=== PATIENT | female | born 1935 | race Caucasian/White ===

== ENCOUNTER 2019-06-10 13:46 | Emergency (ER) | payer BC ==
--- NOTE | 2019-06-10 14:03 | ER Document Report ---
ED Medical Screen (RME) - General Chief Complaint: Abdominal Pain Stated Complaint: ABDOMINAL PAIN,DIARRHEA Time Seen by Provider: 06/10/19 13:58 Primary Care Provider: THOMAS HUSTON FNP [Primary Care Provider] - Follow up as needed TRAVEL OUTSIDE OF THE [place] IN LAST 30 DAYS: No - HPI Notes: 06/10/19 14:02 Patient is an 83-year-old female with a history of IBS and factor V Leiden (on Coumadin) who presents complaining of having abdominal cramping and loose stool/diarrhea for the past 6 days. Patient states is been pretty constant. She had trouble making to the bathroom today when she felt the urge to go. Patient states that most of her symptoms occur after she eats. No fever, chest pain, shortness of breath, vomiting. No blood in her stool. I have treated and performed a rapid initial assessment of this patient. A comprehensive ED assessment and evaluation of the patient, analysis of test results and completion of medical decision making process will be conducted by additional ED providers. PHYSICAL EXAMINATION: GENERAL: Well-appearing, well-nourished and in no acute distress. A&Ox4. Answers questions appropriately. Abdomen: Limited exam in triage, grossly nontender. - Related Data Allergies/Adverse Reactions: meperidine HCl [From Demerol] Allergy (Mild, Verified 06/10/19 13:53) propoxyphene HCl [From Darvon] Allergy (Mild, Verified 06/10/19 13:53) codeine [Codeine] Allergy (Verified 06/10/19 13:53) VOMITING morphine [Morphine] Allergy (Verified 06/10/19 13:53) Anaphylaxis Penicillins Allergy (Verified 06/10/19 13:53) RASH Quinazolinones Allergy (Verified 06/10/19 13:54) Sulfa (Sulfonamide Antibiotics) Allergy (Verified 06/10/19 13:53) Home Medications: coumadin, (facter V-liden) Past Medical History - Social History Chew tobacco use (# tins/day): No Frequency of alcohol use: None Drug Abuse: None - Past Medical History Cardiac Medical History: Reports: Hx Hypertension - "WHITE COAT SYNDROM", Hx Pulmonary Embolism Denies: Hx Heart Attack Pulmonary Medical History: Denies: Hx Asthma Neurological Medical History: Denies: Hx Cerebrovascular Accident, Hx Seizures GI Medical History: Reports: Hx Diverticulitis, Hx Irritable Bowel. Denies: Hx Hepatitis, Hx Hiatal Hernia, Hx Ulcer Infectious Medical History: Denies: Hx C-Diff, Hx Hepatitis Past Surgical History: Reports: Hx Cholecystectomy, Hx Hysterectomy. Denies: Hx Mastectomy, Hx Open Heart Surgery, Hx Pacemaker - Immunizations Hx Diphtheria, Pertussis, Tetanus Vaccination: No Doctor's Discharge - Discharge Referrals: THOMAS HUSTON FNP [Primary Care Provider] - Follow up as needed
[2019-06-10] MEDS ORDERED: NORMAL SALINE 1000 ML 1,000 ML IV ONE (14:21)
--- NOTE | 2019-06-10 14:22 | ER Document Report ---
ED GI/ - General Chief Complaint: Abdominal Pain Stated Complaint: ABDOMINAL PAIN,DIARRHEA Time Seen by Provider: 06/10/19 13:58 Primary Care Provider: THOMAS HUSTON FNP [Primary Care Provider] - Follow up in 3-5 days TRAVEL OUTSIDE OF THE [place] IN LAST 30 DAYS: No - HPI Notes: 06/10/19 14:22 83-year-old female with history of IBS and factor V Leiden on Coumadin to the em ergency department with with complaints of 6 days of diarrhea. She states that this is different from her normal IBS diarrhea that she gets. She states that typically she can target her diarrhea with her IBS when she is going out to the doctor or an appointment and is starting to get nervous. She states however, that this diarrhea is happening every time she eats and she is having significant bowel urgency. She states that she is having diarrhea is explosive and she is having a hard time making it to the bathroom. She states is very smelly. She states that she has not been on any antibiotics recently. She states that she has not recently been traveling or recently had any change in her diet. Her does state that they did use a pancake mix that was about 40 years past its expiration but he also ate the pancakes and did not get particularly ill. She denies any fevers or chills. She denies any nausea or vomiting. She states that her last colonoscopy was about 3 years ago and she had 2 polyps removed. She is supposed to see her GI specialist again for another scope in 2 years. She denies any bloody diarrhea. She states that she got her Coumadin level checked earlier in the week and it was 2.5. She is never had C. difficile colitis. She denies any sick contacts. She has had a cholecystectomy. - Related Data Allergies/Adverse Reactions: meperidine HCl [From Demerol] Allergy (Mild, Verified 06/10/19 13:53) propoxyphene HCl [From Darvon] Allergy (Mild, Verified 06/10/19 13:53) codeine [Codeine] Allergy (Verified 06/10/19 13:53) VOMITING morphine [Morphine] Allergy (Verified 06/10/19 13:53) Anaphylaxis Penicillins Allergy (Verified 06/10/19 13:53) RASH Quinazolinones Allergy (Verified 06/10/19 13:54) Sulfa (Sulfonamide Antibiotics) Allergy (Verified 06/10/19 13:53) Home Medications: coumadin, (vanessa Hastings) Past Medical History - General Information source: Patient, Relative - - Social History Smoking Status: Never Smoker Chew tobacco use (# tins/day): No Frequency of alcohol use: None Drug Abuse: None Family History: Reviewed & Not Pertinent Patient has suicidal ideation: No Patient has homicidal ideation: No - Past Medical History Cardiac Medical History: Reports: Hx Hypertension - "WHITE COAT SYNDROM", Hx Pulmonary Embolism Denies: Hx Heart Attack Pulmonary Medical History: Denies: Hx Asthma Neurological Medical History: Denies: Hx Cerebrovascular Accident, Hx Seizures GI Medical History: Reports: Hx Diverticulitis, Hx Irritable Bowel. Denies: Hx Hepatitis, Hx Hiatal Hernia, Hx Ulcer Infectious Medical History: Denies: Hx C-Diff, Hx Hepatitis Past Surgical History: Reports: Hx Cholecystectomy, Hx Hysterectomy. Denies: Hx Mastectomy, Hx Open Heart Surgery, Hx Pacemaker - Immunizations Hx Diphtheria, Pertussis, Tetanus Vaccination: No Review of Systems - Review of Systems Constitutional: denies: Chills, Fever EENT: No symptoms reported Cardiovascular: denies: Chest pain, Palpitations, Heart racing, Orthopnea, Dyspnea, Syncope, Dizziness, Lightheaded Respiratory: denies: Cough, Short of breath Gastrointestinal: Abdominal pain, Diarrhea. denies: Nausea, Vomiting, Constipation, Blood streaked bowels, Black stools, Rectal bleeding Genitourinary: No symptoms reported Musculoskeletal: No symptoms reported Skin: No symptoms reported Hematologic/Lymphatic: No symptoms reported Neurological/Psychological: No symptoms reported -: Yes All other systems reviewed and negative Physical Exam - Vital signs Vitals: Temp Pulse Resp BP Pulse Ox 97.4 F 101 H 16 170/76 H 97 06/10/19 14:07 06/10/19 14:07 06/10/19 14:07 06/10/19 14:07 06/10/19 14:07 Interpretation: Hypertensive - General General appearance: Appears well, Alert In distress: None - HEENT Head: Normocephalic, Atraumatic Eyes: Normal Pupils: PERRL - Respiratory Respiratory status: No respiratory distress Chest status: Nontender Breath sounds: Normal Chest palpation: Normal - Cardiovascular Rhythm: Regular Heart sounds: Normal auscultation Murmur: No - Abdominal Inspection: Obese Distension: No distension Bowel sounds: Normal Tenderness: Tender - there is mild TTP over the epigastrium with no rebound or guarding, negative McBurney's point Organomegaly: No organomegaly - Back Back: Normal, Nontender. No: CVA tenderness - Extremities General upper extremity: Normal inspection, Nontender, Normal color, Normal ROM, Normal temperature General lower extremity: Normal inspection, Nontender, Normal color, Normal ROM, Normal temperature, Normal weight bearing. No: Toyin's sign - Neurological Neuro grossly intact: Yes Cognition: Normal Orientation: AAOx4 Gina Coma Scale Eye Opening: Spontaneous [place] Coma Scale Verbal: Oriented [place] Coma Scale Motor: Obeys Commands Gina Coma Scale Total: 15 Speech: Normal Cranial nerves: Normal. No: Facial palsy, Forehead sparing, Gaze palsy, Sensory deficit Cerebellar coordination: Normal Motor strength normal: LUE, RUE, LLE, RLE Additional motor exam normals: Equal bee breeder. No: Weakness Sensory: Normal - Psychological Associated symptoms: Normal affect, Normal mood - Skin Skin Temperature: Warm Skin Moisture: Dry Skin Color: Normal Course - Re-evaluation Re-evalutation: discussed patient with Dr. Rogers. He would like me to get a KUB to check for a stool plug on patient. KUB does not illustrate any impaction of fecal matter, but film is not ideal. Discussed further with Dr. Rogers, we will not give antidiarrheals and I will get patient to provide stool sample from home. WIll encourage probiotics and GI follow up. Dr. Rogers agrees. - Vital Signs Vital signs: Temp Pulse Resp BP Pulse Ox 97.7 F 89 18 172/73 H 100 06/10/19 18:16 06/10/19 18:16 06/10/19 18:16 06/10/19 18:16 06/10/19 18:16 - Laboratory Result Diagrams: 06/10/19 14:37 06/10/19 14:37 Laboratory results interpreted by me: 06/10/19 06/10/19 06/10/19 14:37 14:37 14:37 RDW 15.5 H Plt Count 123 L Lymph % (Auto) 11.7 L Seg Neutrophils % 80.5 H PT 26.5 H Potassium 3.3 L Est GFR (MDRD) Non-Af 52 L Glucose 112 H Urine Blood Leukocyte Esterase Rfl 06/10/19 17:24 RDW Plt Count Lymph % (Auto) Seg Neutrophils % PT Potassium Est GFR (MDRD) Non-Af Glucose Urine Blood SMALL H Leukocyte Esterase Rfl TRACE H - Diagnostic Test Radiology reviewed: Image reviewed, Reports reviewed Discharge - Discharge Clinical Impression: Abdominal cramping Diarrhea Qualifiers: Diarrhea type: unspecified type Qualified Code(s): R19.7 - Diarrhea, unspecified Condition: Stable Disposition: HOME, SELF-CARE Instructions: Diarrhea, Nonspecific ([facility]) Additional Instructions: Push fluids. Do not take any antidiarrheals. MAY USE A PROBIOTIC. Return with your stool samples to the lab. Do not forget to bring your lab order for the stool sample. Return if worsening symptoms such as weakness, passing out, blood in stool, fevers, intractable pain or intractable nausea and vomiting. Follow- up with GI specialist in [place]. [facility] [address], [place] [address] Forms: Follow-Up Laboratory Testing Referrals: THOMAS HUSTON FNP [Primary Care Provider] - Follow up in 3-5 days
[2019-06-10 14:51] LABS: ABSOLUTE EOSINOPHILS # (AUTO) 0.1 10^3/uL (0.0-0.6); ABSOLUTE LYMPHOCYTES (AUTO) 0.5 10^3/uL (0.5-4.7); ABSOLUTE MONOCYTES (AUTO) 0.2 10^3/uL (0.1-1.4); ABSOLUTE NEUT (AUTO) 3.3 10^3/uL (1.7-8.2); BASOPHILS % (AUTO) 1.1 % (0-2); EOSINOPHILS % (AUTO) 2.1 % (0-6); HEMOGLOBIN 12.7 g/dL (12.0-15.5); LYMPHOCYTES % (AUTO) 11.7 % (13-45); MEAN CORPUSCULAR HEMOGLOBIN 31.5 pg (27.0-33.4); MEAN CORPUSCULAR HGB CONC 34.4 g/dL (32.0-36.0); MEAN CORPUSCULAR VOLUME 92 fl (80-97); MONOCYTES % (AUTO) 4.6 % (3-13); PLATELET COUNT 123 10^3/uL (150-450); RED BLOOD COUNT 4.04 10^6/uL (3.72-5.28); RED CELL DISTRIBUTION WIDTH 15.5 % (11.5-14.0); SEGMENTED NEUTROPHILS % (AUTO) 80.5 % (42-78); TOTAL CELLS COUNTED % (AUTO) 100 %; WHITE BLOOD COUNT 4.1 10^3/uL (4.0-10.5)
[2019-06-10 15:09] LABS: INTERNATIONAL RATION (INR) 2.39; PROTHROMBIN TIME 26.5 SEC (11.4-15.4)
[2019-06-10 15:13] LABS: ALBUMIN 3.8 g/dL (3.5-5.0); ALKALINE PHOSPHATASE 98 U/L (38-126); ANION GAP 7 (5-19); ASPARTATE AMINO TRANSFERASE 21 U/L (14-36); BILIRUBIN,DIRECT 0.2 mg/dL (0.0-0.4); BILIRUBIN,TOTAL 0.6 mg/dL (0.2-1.3); BLOOD UREA NITROGEN 9 mg/dL (7-20); CALCIUM 9.5 mg/dL (8.4-10.2); CARBON DIOXIDE 29 mmol/L (22-30); CHLORIDE 104 mmol/L (98-107); GLUCOSE 112 mg/dL (75-110); POTASSIUM 3.3 mmol/L (3.6-5.0); TOTAL PROTEIN 7.3 g/dL (6.3-8.2)
--- NOTE | 2019-06-10 16:25 | RADIOLOGY REPORT (SQ) ---
EXAM DESCRIPTION: CT ABD/PELVIS WITH IV ONLY COMPLETED DATE/TIME: 06/10/2019 4:03 pm REASON FOR STUDY: diarrhea, upper abdominal pain COMPARISON: 12/11/2015. TECHNIQUE: CT scan of the abdomen and pelvis performed using helical scanning technique with dynamic intravenous contrast injection. No oral contrast. Images reviewed with lung, soft tissue, and bone windows. Reconstructed coronal and sagittal MPR images reviewed. Delayed images for evaluation of the urinary system also acquired. All images stored on PACS. All CT scanners at this facility use dose modulation, iterative reconstruction, and/or weight based d osing when appropriate to reduce radiation dose to as low as reasonably achievable (ALARA). [facility]: Dose Right [facility]: CareDose [facility]: Dose Right [facility]: Teradose 4D [facility]: Yoolink CONTRAST TYPE AND DOSE: contrast/concentration: Isovue 350.00 mg/ml; Total Contrast Delivered: 80.0 ml; Total Saline Delivered: 57.0 ml RENAL FUNCTION: GFR > 60. RADIATION DOSE: CT Rad equipment meets quality standard of care and radiation dose reduction techniq ues were employed. CTDIvol: 14.8 - 17.4 mGy. DLP: 1579 mGy-cm.. LIMITATIONS: None. FINDINGS: LOWER CHEST: No significant findings. No nodules or infiltrates. LIVER: Large cyst occupying most of the left lobe. Partially calcified cystic mass posterior to the right lobe 3.9 x 5.5 cm not significantly changed. SPLEEN: Normal size. No focal lesions. PANCREAS: No masses. No significant calcifications. No adjacent inflammation or peripancreatic fluid collections. Pancreatic duct not dilated. GALLBLADDER: Surgically absent. ADRENAL GLANDS: No significant masses or asymmetry. RIGHT KIDNEY AND URETER: No solid masses. No significant calcifications. No hydronephrosis or hyd roureter. LEFT KIDNEY AND URETER: No solid masses. No significant calcifications. No hydronephrosis or hydr oureter. AORTA AND VESSELS: No aneurysm. RETROPERITONEUM: No retroperitoneal adenopathy, hemorrhage or masses. BOWEL AND PERITONEAL CAVITY: Diffuse diverticulosis without evidence of diverticulitis. No obstructi on. No ascites or free air. APPENDIX: Normal. PELVIS: No mass. No free fluid. Normal bladder. ABDOMINAL WALL: Fat containing anterior abdominal wall hernia. BONES: Nothing acute. OTHER: No other significant finding. IMPRESSION: 1. Large hepatic cysts not significantly changed. 2. Diffuse diverticulosis without evidence of diverticulitis. 3. Fat containing anterior abdominal wall hernia. TECHNICAL DOCUMENTATION: JOB ID: [id number] Quality ID # [id number]: Final reports with documentation of one or more dose reduction techniques (e.g., Au tomated exposure control, adjustment of the mA and/or kV according to patient size, use of iterative reconstruction technique) 2010 [employer]- All Rights Reserved Reading location - IP/workstation name: [email or web address]
--- NOTE | 2019-06-10 17:33 | RADIOLOGY REPORT (SQ) ---
EXAM DESCRIPTION: KUB/ABDOMEN (SINGLE VIEW) COMPLETED DATE/TIME: 06/10/2019 5:18 pm REASON FOR STUDY: diarrhea, abdominal pain COMPARISON: None. NUMBER OF VIEWS: One view. TECHNIQUE: Supine radiographic image of the abdomen acquired. LIMITATIONS: None. FINDINGS: BOWEL GAS PATTERN: Normal bowel gas pattern. No dilated loops. CALCIFICATIONS: No suspicious calcifications. SOFT TISSUES: No gross mass or suggestion of organomegaly. HARDWARE: None in the abdomen. BONES: No acute fracture. No worrisome bone lesions. OTHER: No other significant finding. IMPRESSION: NO RADIOGRAPHIC EVIDENCE FOR ACUTE ABDOMINAL DISEASE. TECHNICAL DOCUMENTATION: JOB ID: [id number] 2010 [employer]- All Rights Reserved Reading location - IP/workstation name: [email or web address]
[2019-06-10 17:52] LABS: APPEARANCE,URINE CLEAR; BILIRUBIN,URINE NEGATIVE (NEGATIVE); COLOR,URINE STRAW; GLUCOSE, URINE NEGATIVE (NEGATIVE); KETONES,URINE NEGATIVE (NEGATIVE); PROTEIN,URINE NEGATIVE (NEGATIVE); URINE SPECIFIC GRAVITY 1.026; UROBILINOGEN,URINE NEGATIVE mg/dL (<2.0)
[2019-06-10 18:17] VITALS: BP 172/73
== END 2019-06-10 18:18 | disposition home or self-care (01) ==
LOC: ER 13:46
DX: R19.7 Diarrhea, unspecified (principal); R10.9 Unspecified abdominal pain; R10.816 Epigastric abdominal tenderness; D68.51 Activated protein C resistance; I10 Essential (primary) hypertension; Z79.01 Long term (current) use of anticoagulants; Z87.19 Personal history of other diseases of the digestive system; Z90.49 Acquired absence of other specified parts of digestive tract; Z88.6 Allergy status to analgesic agent; Z88.5 Allergy status to narcotic agent; Z88.0 Allergy status to penicillin; Z88.2 Allergy status to sulfonamides; Z88.8 Allergy status to other drugs, medicaments and biological substances
CPT/HCPCS: 36415; 87086; 83690; 85025; 85610; 80053; 81001; 74018; 74177; J7030; 96360; 96361; 99284